=== PATIENT | male | born 1985 | race Caucasian/White ===

== ENCOUNTER 2018-02-08 01:09 | Emergency (ER) ==
[2018-02-08] MEDS ORDERED: TORADOL IM STA (01:37)
--- NOTE | 2018-02-08 01:39 | ED.PDOC ---
General ED Provider: Dr. FRANKIE MI Chief Complaint: Shoulder Pain/Injury Stated Complaint: Patient hurt his right shoulder, it is hurting to raise shoulder, constant pain. Time Seen by Physician: 01:37 Mode of Arrival: Walk-In Information Source: Patient Nursing and Triage Documentation Reviewed and Agree: Yes Reviewed sepsis parameters & appropriate labs ordered?: No System Inflammatory Response Syndrome: Not Applicable Sepsis Protocol: For patient's 13 years and over: Temp is 96.8 and below OR 101 and greater Pulse >90 BPM Resp >20/minute Acutely Altered Mental Status Are patient's symptoms suggestive of a new infection, such as: -Pneumonia -Skin, Soft Tissue -Endocarditis -UTI -Bone, Joint Infection -Implantable Device -Acute Abdominal Infection -Wound Infection -Meningitis -Blood Stream Catheter Infection -Unknown Musculoskeletal Complaint Exam - Shoulder Pain Complaint/Exam Mechanism of Injury: Reports: Trauma Symptoms Are: Still present Timing: Constant Initial Severity: Moderate Current Severity: Moderate Location: Reports: Discrete Character: Reports: Aching, Throbbing Alleviating: Reports: None Aggravating: Reports: Movement, Lifting, Flexion, Extension Associated Signs and Symptoms: Denies: Swelling, Redness, Bruising, Fever, Weakness, Numbness, Tingling Non-Orthopedic Risk Factors: Reports: None DVT Risk Factors: Reports: None Septic Arthritis Risk Factors: Reports: None Related Surgical History: Reports: None Shoulder Findings: Absent: Swelling, Ecchymosis, Abnormal contour Limited Range of Motion: Present: Abduction, Adduction, Flexion Differential Diagnoses: Closed Fracture, Strain Review of Systems - Review Of Systems Constitutional: Reports: No symptoms Eyes: Reports: No symptoms Ears, Nose, Mouth, Throat: Reports: No symptoms Respiratory: Reports: No symptoms Cardiac: Reports: No symptoms GI: Reports: No symptoms : Reports: No symptoms Musculoskeletal: Reports: Joint pain Skin: Reports: No symptoms Neurological: Reports: No symptoms Endocrine: Reports: No symptoms Hematologic/Lymphatic: Reports: No symptoms All Other Systems: Reviewed and Negative Past Medical History - Past Medical History Previously Healthy: Yes Endocrine: Reports: None Cardiovascular: Reports: None Respiratory: Reports: None Hematological: Reports: None Gastrointestinal: Reports: None Genitourinary: Reports: None Neuro/Psych: Reports: None Musculoskeletal: Reports: None Cancer: Reports: None - Surgical History General Surgical History: Reports: None - Family History Family History: Reports: None - Social History Smoking Status: Current every day smoker, Heavy tobacco smoker Smoking Cessation Counseling Time: > 10 min Hx Substance Use: No Alcohol Screening: None - Immunizations Tetanus Shot up to Date: Yes (2015) Physical Exam - Physical Exam Appearance: Well-appearing, No pain distress, Well-nourished Eyes: CA, EOMI, Conjunctiva clear ENT: Ears normal, Nose normal, Oropharynx normal Respiratory: Airway patent, Breath sounds clear, Breath sounds equal, Respirations nonlabored Cardiovascular: RRR, Pulses normal, No rub, No murmur GI/: Soft, Nontender, No masses, Bowel sounds normal, No Organomegaly Musculoskeletal: ROM intact, No edema, No calf tenderness, Limited ROM (rt shoulder.) Skin: Warm, Dry, Normal color Neurological: Sensation intact, Motor intact, Reflexes intact, Cranial nerves intact, Alert, Oriented Psychiatric: Affect appropriate, Mood appropriate Critical Care Note - Critical Care Note Total Time (mins): 20 Course - Course Orders, Labs, Meds: Orders Category Date Time Status Ketorolac Tromethamine [Toradol] MEDS 02/08/18 01:37 Stat 30 mg IM ONCE STA SHOULDER, RIGHT MIN 2V Stat RADS 02/08/18 01:37 Ordered Medications Generic Name Dose Route Start Last Admin Trade Name Freq PRN Reason Stop Dose Admin Ketorolac Tromethamine 30 mg 02/08/18 01:37 Toradol IM 02/08/18 01:38 ONCE STA Vital Signs: Temp Pulse Resp BP Pulse Ox 02/08/18 01:10 98.3 F 75 16 116/76 96 Departure - Departure Time of Disposition: 01:42 Disposition: HOME SELF-CARE Discharge Problem: Shoulder pain Shoulder sprain Qualifiers: Encounter type: initial encounter Shoulder sprain type: other part of shoulder region Laterality: right Qualified Code(s): S43.491A - Other sprain of right shoulder joint, initial encounter Instructions: Shoulder Sprain (ED) Condition: Stable Pt referred to PMD for follow-up: Yes IPMP verified?: No Additional Instructions: rest hot pack, If not better, needs further testing. Prescriptions: Tramadol HCl 50 mg PO BID #10 tablet Allergies/Adverse Reactions: Allergies Penicillins Adverse Reaction (Verified 02/08/18 01:18) Sulfa (Sulfonamide Antibiotics) Adverse Reaction (Verified 02/08/18 01:18) Home Medications: Ambulatory Orders Multivitamin [Multi-Vitamin Daily] 1 each PO DAILY 02/08/18 Tramadol HCl 50 mg PO BID #10 tablet 02/08/18 Disposition Discussed With: Patient
[2018-02-08 01:48] VITALS: BP 116/76; TEMP 98.3; BMI 24.3
--- NOTE | 2018-02-08 02:00 | DI ---
EXAM: Right shoulder three views HISTORY: Trauma COMPARISON: None. FINDINGS: IMPRESSION: The AC joint and glenohumeral joint are intact. Minimal sclerosis is noted about the g reater tuberosity . There is mild deformity about the greater tuberosity superiorly likely related t o old healed post-traumatic changes.
== END 2018-02-08 02:05 | disposition home or self-care (01) ==
LOC: ED 01:09
DX: S43.491A Other sprain of right shoulder joint, initial encounter (principal); F17.210 Nicotine dependence, cigarettes, uncomplicated
CPT/HCPCS: 99282